=== PATIENT | male | born 1965 | race Caucasian/White ===

== ENCOUNTER → 2020-12-16 | Outpatient (CLI) | payer MEDICARE, OTHER ==
[~2020-12-16] VITALS: Ht 162.6 cm; Wt 76.5 kg
[2020-12-16 11:06] VITALS: BP 130/87
== END | disposition home or self-care (01) ==
LOC: SRCNTR 10:29
PROVIDERS: ATTEND Internal Medicine
DX: R06.00 Dyspnea, unspecified (principal); Z86.16 Personal history of COVID-19; M54.14 Radiculopathy, thoracic region; M48.8X4 Other specified spondylopathies, thoracic region
CPT/HCPCS: G0463

== ENCOUNTER → 2021-02-12 | Outpatient (CLI) | payer MEDICARE, OTHER ==
[~2021-02-12] VITALS: Ht 162.6 cm; Wt 76.5 kg
[2021-02-12 09:40] VITALS: BP 133/75
== END | disposition home or self-care (01) ==
LOC: SRCNTR 09:16
PROVIDERS: ATTEND Internal Medicine
DX: M54.14 Radiculopathy, thoracic region (principal); R06.00 Dyspnea, unspecified; M48.04 Spinal stenosis, thoracic region; Z86.16 Personal history of COVID-19
CPT/HCPCS: G0463